=== PATIENT | male | born 1995 | race Two or more races ===

== ENCOUNTER 2025-03-12 14:13 | Emergency (ER) | payer MEDICAID, SELFPAY ==
[2025-03-12 14:15] VITALS: BMI 21.4
[2025-03-12 15:16] VITALS: BP 130/85; PULSE 90; RESP 18; TEMP 37.4; O2SAT 98
--- NOTE | 2025-03-12 15:55 | XR_ITS ---
Examination: CT abdomen with intravenous contrast CT pelvis with intravenous contrast 2-D coronal reconstructions 2-D sagittal reconstructions Date and time of exam:March 12, 2025, 1817 hrs., Comparison December 31, 2013. Indications: Abdominal pain and nausea beginning 2 weeks ago. CTDI: vol (mGy) 5.57 DLP: (mGycm) 236 Technique: Multiple axial sections of the abdomen and pelvis have been obtained. 64 slice high-resolution scanner used. 3 mm axial sections have been obtained, post intravenous injection 60 cc [id number]. 2-D sagittal, coronal reconstructions obtained. Low dose protocols were performed. One or more of the following dose reduction techniques were used; automated exposure control, adjustment of the mA and/or KV according to patient size, use of iterative reconstruction technique. Findings: No focal liver or splenic lesions. Contracted gallbladder. No pancreatic edema. Normal adrenal glands. No renal or ureteral calculi, no hydronephrosis. Aorta normal size. No bowel obstruction. Appendix is not visualized. No diverticulitis. Normal seminal vesicles. Prostate is not enlarged. Urinary bladder intact. The osseous structures are intact Impression: No renal or ureteral calculi, no hydronephrosis Appendix is not visualized. No bowel obstruction or diverticulitis
--- NOTE | 2025-03-12 15:59 | EDNOTE_ITS ---
<Statement entered by Lisa Guardado MD - 03/13/25 06:23> As co-signing physician, I was present and available for consult prn. I concur with the plan and care as documented by the midlevel provider. ED Abdominal Pain RME/HPI General Chief Complaint: Abdominal Pain Stated complaint: UPPER ABD PAIN, NOT EATING X2 WEEKS Time seen by provider: 03/12/25 15:18 Arrival date/time: 03/12/25 14:13 RME / HPI RME / HPI narrative: 29-year-old patient presents emergency department with complaint of abdominal pain and burning sensation with eating. Patient is here with mother who states the patient has lost over 20 pounds in the last 3 months. Patient was recently seen Without emergency department and was prescribed sucralfate and Zofran however parent states that that has not alleviated patient's pain. Patient is awaiting endoscopy in the coming weeks. Patient has been on Protonix without relief Prilosec without relief omeprazole also without relief. Patient states he has not been tested for H. pylori as his PCP wants him to discontinue the medications he is taking prior to getting a stool sample. Mother states the patient is currently on venlafaxine for anxiety Onset (ago): month(s) Consistency: constant Location: diffuse Severity: severe Severity scale (1-10): 10 Quality: burning Radiation: none Migration to: no migration Relieving factors: other (not eating) Exacerbating factors: eating Treatments prior to arrival: antacids Related Data Home Medications ?Medication ?Instructions ?Recorded ?Confirmed albuterol sulfate 90 mcg/actuation 2 inh inhalation Q4 HRPRN ##0 12/27/12 aerosol inhaler (Ventolin HFA) albuterol sulfate 2.5 mg/3 mL 2.5 mg HHN QID PRN SHORT NESS OF 01/06/14 (0.083 %) solution for nebulization BREATH OR WHEEZE # 0 ea Previous Rx's ?Medication ?Instructions ?Recorded Acetaminophen ER * (TYLENOL ER *) 650 mg PO Q8HR PRN P AIN ##30 11/21/16 ibuprofen 600 mg tablet 600 mg PO Q6HR PRN PAIN #30 tabs 11/21/16 metoclopramide HCl 10 mg tablet 10 mg PO Q6H nausea an d vomiting 03/12/25 (Reglan) 10 days #40 tabs Allergies Allergy/AdvReac Type Severity Reaction Status Date / Time No Known Allergies Allergy Verified 10/14/18 13:09 Review of Systems Review of Systems Systems Reviewed: All systems reviewed, normal except as documented Constitutional Constitutional: Reports system reviewed and no additional complaints, except as documented Cardiovascular Cardiovascular: Reports system reviewed and no additional complaints, except as documented Gastrointestinal Gastrointestinal: Reports abdominal pain, Denies coffee ground emesis, Denies constipation and Denies cramping Musculoskeletal Musculoskeletal: Reports system reviewed and no additional complaints, except as documented Neurologic Neurologic: Reports system reviewed and no additional complaints, except as documented ED Exam General General appearance: Present in no apparent distress Head Head exam: Present atraumatic ENT ENT exam: Present normal exam and normal oropharynx Chest Chest inspection: Present normal inspection and symmetric chest wall rise Respiratory Respiratory exam: Present normal lung sounds bilaterally Cardiovascular Cardiovascular exam: Present regular rate Abdominal Exam Abdominal exam: Present soft, tenderness and normal bowel sounds; Absent guarding or rebound Neurological Exam Neurological exam: Present alert and oriented X3 Psychiatric Psychiatric exam: Present normal affect Course Quality Measures none Orders Category Date Time Status CT Screening NOW Care 03/12/25 15:[address] abdomen pelvis w con Stat Exams 03/12/25 15:55 Completed CBC Stat Lab 03/12/25 16:20 Completed CMP [Comprehensive Metabolic Panel] Stat Lab 03/12/25 16:20 Completed Metoclopramide Inj [Reglan Inj] Med 03/12/25 15:55 Discontinued 10 mg IVP X1 ONE Morphine* Inj Med 03/12/25 15:58 Discontinued 2 mg IVP X1 ONE Pantoprazole Inj [Protonix Inj] Med 03/12/25 15:56 Discontinued 40 mg IVP X1 ONE Sodium Chloride 0.9% 1000 ml [Ns] 1,000 ml Med 03/12/25 15:55 Discontinued IV 1,000 mls/hr Vital Signs Vital signs: Vital Signs Temperature 99.3 F 03/12/25 15:16 Pulse Rate 90 03/12/25 15:16 Respiratory Rate 18 03/12/25 15:16 Blood Pressure 130/85 H 03/12/25 15:16 Pulse Oximetry (%) 98 03/12/25 15:16 Oxygen Delivery Method Room Air 03/12/25 15:16 Abdominal Pain MDM MDM Narrative MDM Narrative:: CT unremarkable for infection, masses or tumor, patient encouraged to follow up with GI for endoscopy. Patient data External records reviewed:: None Clinical information provided by:: patient and parent Social determinants that could affect healthcare access:: none Patient has the following chronic illnesses:: gastritis, anxiety How is presenting disease/condition affected by chronic disease/condition?: exacerbated by Evaluation data The following diagnostics were reviewed and interpreted by me:: lab results and radiology exam(s) Lab and/or radiology exams considered but not ordered:: both considered and ordered Interpretation Summary: unremarkable labs and CT Medications / Prescriptions Medications or Prescriptions considered but not ordered:: both considered and ordered Medication administrations:: Medication Administration History Discontinued Medications Sodium Chloride (Ns) 1,000 mls @ 1,000 mls/hr IV .Q1H ONE Stop: 03/12/25 16:54 Last Infusion: 03/12/25 19:47 Dose: Infused Documented By: Admin: 03/12/25 17:50 Dose: 1,000 mls/hr Documented By: KELSEA Metoclopramide HCl (Metoclopramide Inj 5 Mg/Ml Vial 2 Ml) 10 mg IVP X1 ONE; Protocol Stop: 03/12/25 15:56 Last Admin: 03/12/25 18:09 Dose: 10 mg Documented By: HELENA Morphine Sulfate (Morphine Sulf Inj 4 Mg/Ml Vial) 2 mg IVP X1 ONE Stop: 03/12/25 15:59 Last Admin: 03/12/25 18:09 Dose: 2 mg Documented By: HELENA Pantoprazole Sodium (Pantoprazole Inj 40 Mg Vial) 40 mg IVP X1 ONE Stop: 03/12/25 15:57 Last Admin: 03/12/25 18:09 Dose: 40 mg Documented By: HELENA per above Consultations Consultation(s) initiated? (list below): No Diagnosis Differential diagnosis abdominal pain: abdominal pain, diverticulitis and gastroenteritis Most likely diagnosis given after review of the tests above:: gastritis Admission Indicated Admission indicated?: not indicated Explain why admission is indicated or not indicated:: not applicable, no life threatening dx at this time Admission Request Was there a request for admission?: No Disposition Plan Disposition Plan: Discharge Discharge Attestation Discharge Attestation: The patient and all family members were given an opportunity to ask questions and understood the discharge instructions. Discharge instructions specifically effects, indications for sooner follow up or return to the emergency department, and the expected course of current diagnosis. Patient condition: Stable Discharge Plan Plan Patient Disposition: HOME (Self Care) Prescriptions/Referrals Prescriptions/Med Rec: New metoclopramide HCl [Reglan] 10 mg tablet 10 mg PO Q6H 10 Days Qty: 40 0RF No Action albuterol sulfate [Ventolin HFA] 200 PUFF/INH HFA aerosol inhaler 2 inh Inhalation [id number] Qty: 0 albuterol sulfate 2.5 MG/3 ML solution for nebulization 2.5 mg HHN QID PRN (Reason: SHORTNESS OF BREATH OR WHEEZE) Qty: 0 Acetaminophen ER * (TYLENOL ER *) 650 MG TABLET.ER 650 mg PO Q8HR PRN (Reason: PAIN) Qty: 30 0RF ibuprofen 600 MG tablet 600 mg PO Q6HR PRN (Reason: PAIN) Qty: 30 0RF Referrals: No Primary/Family,Physician [Primary Care Provider] - In 1 week Problem List Clinical Impression: Gastritis and gastroduodenitis, Peptic ulcer Patient/Caregiver Discharge Instructions Education Materials: Treating Gastritis, Understanding Gastritis, Understanding Gastric Ulcers, ED Gastritis (Adult), ED PUD Print Language: Urdu Stand Alone Forms: [facility] Award Info., Patient Portal Info Letter
[2025-03-12 16:35] LABS: Basophils # (Auto) 0.1 Thou/mm3 (0.0-0.2); Basophils % (Auto) 1 % (0-2.5); Eosinophils # (Auto) 0.2 Thou/mm3 (0.0-0.5); Eosinophils % (Auto) 2 % (0-10); Hematocrit 47.6 % (41.0-53.0); Hemoglobin 16.8 g/dL (13.5-16.0); Immature Granulocytes Auto 0.01 Thou/mm3 (0.00-0.00); Lymphocytes # (Auto) 2.5 Thou/mm3 (1.0-4.8); Lymphocytes % (Auto) 29 % (10-50); Mean Corpuscular HGB Conc 35.3 g/dl (31.0-37.0); Mean Corpuscular Hemoglobin 30.3 pg (25.0-35.0); Mean Corpuscular Volume 86 fL (80-100); Monocytes # (Auto) 0.8 Thou/mm3 (0.0-0.8); Monocytes % (Auto) 9 % (0-12); Neutrophils # (Auto) 5.2 Thou/mm3 (1.8-7.7); Neutrophils % (Auto) 59 % (37-80); Nucleated Red Blood Cell # 0.00 Thou/mm3 (0.00-0.00); Nucleated Red Blood Cell % 0 /100 WBC (0); Platelet Count 341 Thou/mm3 (140-440); RDW Standard Deviation 40.7 fL (35.1-43.9); Red Blood Count 5.55 Miln/mm3 (4.50-5.90); White Blood Count 8.8 Thou/mm3 (3.8-10.6)
[2025-03-12 16:55] LABS: Alanine Aminotransferase 15 U/L (10-49); Albumin, Serum 4.9 gm/dL (3.5-5.0); Albumin/Globulin Ratio 1.9 (1.2-2.2); Alkaline Phosphatase 96 U/L (46-116); Anion Gap 12 (7-16); Aspartate Amino Transferase 15 U/L (0-34); BUN/Creatinine Ratio 8 Ratio (12-20); Bilirubin,Total 1.1 mg/dL (0.3-1.2); Blood Urea Nitrogen 7 mg/dL (9-23); Calcium 9.9 mg/dL (8.3-10.6); Calcium (Corrected) 9.9 mg/dL (8.5-10.1); Carbon Dioxide 27.5 mMol/L (20.0-31.0); Chloride 101 mMol/L (98-107); Creatinine (Component) 0.9 mg/dL (0.6-1.3); Estimated Creatinine Clearance 105.2 mL/min (>60); Globulin 2.6 gm/dL (2.3-3.5); Glucose 93 mg/dL (74-106); Osmolality,Calculated 277 (275-295); Potassium 3.4 mMol/L (3.4-5.1); Sodium 140 mMol/L (136-145); Total Protein 7.5 gm/dL (5.7-8.2); eGFR > 60 See Note
[2025-03-12] MEDS: SODIUM CHLORIDE 0.9% 1000 ML 1,000 ML IV (17:50)
[2025-03-12] MEDS: MORPHINE SULF INJ 4 MG/ML VIAL 2 MG IVP (18:09)
[2025-03-12] MEDS: METOCLOPRAMIDE INJ 5 MG/ML VIAL 2 ML 10 MG IVP (18:09)
== END 2025-03-12 19:45 | disposition home or self-care (01) ==
PROVIDERS: Physician Assistant; Emergency Provider Emergency Medicine
DX: K29.70 Gastritis, unspecified, without bleeding (principal); K29.90 Gastroduodenitis, unspecified, without bleeding; K27.9 Peptic ulcer, site unspecified, unspecified as acute or chronic, without hemorrhage or perforation; F41.9 Anxiety disorder, unspecified
CPT/HCPCS: 36415; 74177; 80053; 85025; 96374; 96375; 99283; A4649; J2270; J2470; J2765; J7030; Q9967